=== PATIENT | male | born 1955 | race Caucasian/White ===

== ENCOUNTER 2018-12-03 14:00 | Emergency (ER) | payer BC ==
--- NOTE | 2018-12-03 14:54 | CT ---
[id number] CT/CT Head Stroke Protocol Exam: CT Head Stroke Protocol Clinical Data: RIGHT SIDE FACIAL NUMBNESS COMPARISON: NO PREVIOUS SIMILAR EXAM IS AVAILABLE FINDINGS: There is no mass or mass effect There is no hemorrhage or hydrocephalus There are no extra-axial fluid collections There are no sites of abnormal attenuation Report was called at time of the dictation. IMPRESSION: NEGATIVE PLAIN CT BRAIN Figueroa Upton MD 12/07/18 0728 Thank you for allowing us to participate in the care of your patient.
--- NOTE | 2018-12-03 15:13 | EDM.PDOC ---
ED HPI GENERAL MEDICAL PROBLEM - General Chief Complaint: General Stated Complaint: Right facial numbness Time Seen by Provider: 12/03/18 14:18 Source of Information: Reports: Patient History Limitations: Reports: No Limitations - History of Present Illness INITIAL COMMENTS - FREE TEXT/NARRATIVE: Patient presents with right facial numbness. He tells me that about 24 hours ago he was sitting doing some paperwork at work and suddenly had sharp excruciating pain at right druze/behind right eye area. It lasted 5-10 seconds and then was gone. Immediately afterward he noticed numbness of right cheek, nose and perioral area. Normal on the left side of face. This has persisted now for 24 hours but has lessened a little. He denies any vision change, facial droop, extremity weakness or numbness, previous stroke, heart problems. He says there might be a slight change in taste sensation but no numbness of tongue. He only takes thyroid medication. He tells me that he had the exact same thing happen 7 days ago while driving between work sites. The 5- 10 second sharp pain followed by numbness of right face, but that time the numbness resolved after 2-3 hours. - Related Data Allergies Allergy/AdvReac Type Severity Reaction Status Date / Time No Known Drug Allergies Allergy Other Verified 12/03/18 14:08 Home Meds: Home Meds Levothyroxine 125 mcg PO DAILY 12/03/18 [History] Omeprazole 20 mg PO DAILY 12/03/18 [History] ED ROS GENERAL - Review of Systems Review Of Systems: See Below Constitutional: Denies: Fever, Chills, Malaise, Weakness HEENT: Denies: Dental Pain, Ear Pain, Nose Pain, Throat Pain, Throat Swelling, Vision Change Respiratory: Denies: Shortness of Breath, Cough Cardiovascular: Denies: Chest Pain, Lightheadedness, Syncope Endocrine: Reports: No Symptoms GI/Abdominal: Denies: Abdominal Pain, Diarrhea, Vomiting Musculoskeletal: Denies: Neck Pain, Shoulder Pain, Arm Pain, Back Pain, Hand Pain, Leg Pain, Foot Pain Skin: Denies: Cyanosis, Jaundice, Mottled, Pallor, Diaphoresis Neurological: Denies: Confusion, Dizziness, Headache Psychiatric: Denies: Agitation, Anxiety, Confusion ED EXAM, GENERAL - Physical Exam Exam: See Below Exam Limited By: No Limitations General Appearance: Alert, WD/WN, No Apparent Distress Eye Exam: Bilateral Eye: EOMI, Normal Inspection, PERRL Ears: Normal External Exam, Hearing Grossly Normal Nose: Normal Inspection, No Blood, Other (no decreased sensation to touch). No : Nasal Tenderness Throat/Mouth: Normal Inspection, Normal Lips, Normal Voice, No Airway Compromise Head: Atraumatic, Normocephalic, Other (no decreased sensation or asymmetry to touch). No: Facial Swelling, Facial Tenderness Neck: Normal Inspection, Supple, Non-Tender, Full Range of Motion Respiratory/Chest: No Respiratory Distress, Lungs Clear, Normal Breath Sounds, No Accessory Muscle Use Cardiovascular: Regular Rate, Rhythm, No Murmur GI/Abdominal: Normal Bowel Sounds, Soft, Non-Tender, No Organomegaly, No Distention Back Exam: Normal Inspection, Full Range of Motion Extremities: Normal Inspection, Normal Range of Motion, Non-Tender, No Pedal Edema, Other (5/5 strength symmetrically throughout hand [facility], arm, leg raise, dorsiflexion, plantarflexion) Neurological: Alert, Oriented, CN II-XII Intact, Normal Cognition, Normal Gait, No Motor/Sensory Deficits (throughout). No: Sensory/Motor Deficit Psychiatric: Normal Affect, Normal Mood Skin Exam: Warm, Dry, Intact, Normal Color, No Rash Course - Vital Signs Last Recorded V/S: Last Vital Signs Temp 96.9 F 12/03/18 14:05 Pulse 82 12/03/18 14:37 Resp 18 12/03/18 14:37 BP 141/74 H 12/03/18 14:37 Pulse Ox 98 12/03/18 14:37 - Orders/Labs/Meds Orders: Active Orders 24 hr Category Date Time Status Head wo Cont [CT] Stat Exams 12/03/18 14:04 Taken - Re-Assessments/Exams Free Text/Narrative Re-Assessment/Exam: 12/03/18 16:[address] normal[address] Discussed case with ER Dr. Olea and a neurologist at [facility]. They are confident this is not a stroke but suspect trigeminal neuralgia and suggest follow up next week and offer to try gabapentin starting today for the painful component. Discussed findings and treatment options with patient. Since the only pain has been two short episodes he wants to hold off on the gabapentin but will follow up with his PCP next week. 12/03/18 16:11 Patient discharged in stable condition. Departure - Departure Time of Disposition: 16:02 Disposition: Home, Self-Care 01 Condition: Good Clinical Impression: Trigeminal neuralgia of right side of face - Discharge Information Referrals: PCP,Not In Area [Primary Care Provider] - Additional Instructions: 1. Follow up with your PCP early next week for follow up and possible further workup. 2. If worsening recheck FIONA in clinic or ER. - My Orders Last 24 Hours: My Active Orders 12/03/18 14:04 Head wo Cont [CT] Stat - Assessment/Plan Last 24 Hours: My Active Orders 12/03/18 14:04 Head wo Cont [CT] Stat
== END 2018-12-03 16:10 | disposition home or self-care (01) ==
LOC: KA.ED 14:00
DX: G50.0 Trigeminal neuralgia (principal); Z79.899 Other long term (current) drug therapy
CPT/HCPCS: 70450; 93005; 99284-25